=== PATIENT | male | born 1950 | race Caucasian/White ===

== ENCOUNTER 2023-11-08 07:56 | Emergency (ER) | payer MEDICARE ==
[2023-11-08] MEDS: Lidocaine 1% with EPINEPHrine 1:100,000 50 ML MDV SUBCUT STA (08:33)
[2023-11-08] MEDS: Bacitracin Oint 1 GM U/D Packet TOP ONE (08:34)
[2023-11-08] MEDS: Ondansetron 4 MG Tab.DIS PO ONE (08:50)
== END 2023-11-08 09:01 | disposition home or self-care (01) ==
LOC: JP.ED 07:56
DX: S81.811A Laceration without foreign body, right lower leg, initial encounter (principal); I10 Essential (primary) hypertension; E78.00 Pure hypercholesterolemia, unspecified; Z88.0 Allergy status to penicillin; Z79.899 Other long term (current) drug therapy; W25.XXXA Contact with sharp glass, initial encounter
CPT/HCPCS: 12002; 99283; Q0162